=== PATIENT | female | born 1980 | race Caucasian/White ===

== ENCOUNTER 2016-09-26 16:22 | Emergency (ER) | payer BC ==
[2016-09-26 17:23] VITALS: BP 113/61
--- NOTE | 2016-09-26 17:37 | UC ---
Ear Complaint HPI - HPI Summary HPI Summary: The patient comes in today for: 1. Left ear pain: Onset: 2 weeks. Palliative/provocative: Nothing makes the pain better or worse except that swallowing makes it worse "a little." Quality: Ache Region: Left Severity:3/10 Time: Constant. Associated symptoms: Rhinitis: None Cough: None. Fevers: None Sore throat: "little bit." * - History of Current Complaint Chief Complaint: UCEar Stated Complaint: LEFT EAR PAIN,SORE THROAT Time Seen by Provider: 09/26/16 17:18 Hx Obtained From: Patient Hx Last Menstrual Period: 09/06/15 ?: No - Allergies/Home Medications Allergies/Adverse Reactions: Allergies Allergy/AdvReac Type Severity Reaction Status Date / Time No Known Allergies Allergy Verified 09/26/16 17:06 PMH/Surg Hx/FS Hx/Imm Hx Previously Healthy: Yes Endocrine History Of: Denies: Diabetes, Thyroid Disease, Hyperthyroidism, Hypothyroidism, Dyslipidemia Cardiovascular History Of: Denies: Cardiac Disorders, Hypertension, Pacemaker/ICD, Myocardial Infarction , Congestive Heart Failure, Atrial Fibrillation, Deep Vein Thrombosis, Bleeding Disorders Respiratory History Of: Denies: COPD, Asthma, Bronchitis, Pneumonia, Pulmonary Embolism GI/ History Of: Denies: Gastroesophageal Reflux, Ulcer, Gastrointestinal Bleed, Gall Bladder Disease, Kidney Stones, Diverticulitis, Renal Disease, Urosepsis Neurological History Of: Denies: TIA, CVA, Dementia, Seizures, Migraine Psychological History Of: Denies: Anxiety, Depression, Bipolar Disorder, Schizophrenia, Post Traumatic Stress Disorder Cancer History Of: Denies: Lung Cancer, Colorectal Cancer, Breast Cancer, Prostate Cancer, Cervical Cancer Other History Of: Negative For: HIV, Hepatitis B, Hepatitis C, Anticoagulant Therapy - Surgical History Surgical History: Yes Surgery Procedure, Year, and Place: TUBAL LIGATION - Family History Known Family History: Negative: Cardiac Disease, Hypertension - Social History Occupation: Employed Full-time Alcohol Use: Occasionally Substance Use Type: None Smoking Status (MU): Former Smoker When Did the Patient Quit Smoking/Using Tobacco: 2012 Review of Systems Constitutional: Negative Skin: Negative Eyes: Negative ENT: Sore Throat Respiratory: Negative Cardiovascular: Negative Gastrointestinal: Negative Genitourinary: Negative All Other Systems Reviewed And Are Negative: Yes Physical Exam Triage Information Reviewed: Yes Appearance: Well-Appearing, No Pain Distress, Well-Nourished Vital Signs: Initial Vital Signs Temp 98.5 F 09/26/16 17:06 Pulse 50 09/26/16 17:06 Resp 17 09/26/16 17:06 BP 113/61 09/26/16 17:06 Pulse Ox 100 09/26/16 17:06 Vital Signs Reviewed: Yes Eyes: Positive: Conjunctiva Clear. Negative: Discharge ENT: Positive: Hearing grossly normal, Nasal congestion. Negative: Pharyngeal erythema, Nasal drainage, TM bulging, TM dull, TM red, Tonsillar swelling, Tonsillar exudate Dental: Negative: Gross Decay/Caries @, Dental Fracture @ Neck: Positive: Supple, Nontender, No Lymphadenopathy. Negative: Nuchal Rigidity Respiratory: Positive: Chest non-tender, Lungs clear, No respiratory distress, No accessory muscle use. Negative: Crackles, Wheezing Cardiovascular: Positive: RRR, No Murmur Abdomen Description: Positive: Nontender, No Organomegaly, Soft. Negative: Distended, Guarding Musculoskeletal: Positive: Strength Intact, ROM Intact, No Edema Neurological: Positive: Alert, Muscle Tone Normal Psychological: Positive: Age Appropriate Behavior, Consolable Skin: Negative: rashes, breakdown Diagnostics - Laboratory Diagnostic Studies Completed/Ordered: Strep test: (-) Ear Complaint Course/Dx - Course Course Of Treatment: patient told of negative strep test. Diagnosis ( eustachian tube dysfunction and/or referred pain from viral pharyngitis) was discussed and treatment options discussed. - Differential Dx/Diagnosis Differential Diagnosis/HQI/PQRI: Cerumen Impaction, Otitis Externa, Otitis Media Provider Diagnoses: Viral pharyngitis. Otalgia. Eustachian tube dysfunction Discharge - Discharge Plan Condition: Stable Disposition: HOME Patient Education Materials: Pharyngitis (ED), Earache (ED) Referrals: No Primary Care Phys,NOPCP [Primary Care Provider] - 1 Week (Please see your primary care provider in about a week. If you don't have a primary care provider, please reference the included sheet of local provider. If you get worse, please be seen sooner.)
== END 2016-09-26 18:12 | disposition home or self-care (01) ==
LOC: UCCORT 16:22
DX: J02.9 Acute pharyngitis, unspecified (principal); H92.02 Otalgia, left ear; H69.92 Unspecified Eustachian tube disorder, left ear; Z87.891 Personal history of nicotine dependence
CPT/HCPCS: 87651; 99202; G0463